=== PATIENT | male | born 1960 | race Caucasian/White ===

== ENCOUNTER 2016-12-17 08:18 | Emergency (ER) | payer OTHER ==
[2016-12-17 08:23] VITALS: BMI 22.4
[2016-12-17 08:25] VITALS: BP 107/81; PULSE 51; TEMP 97.8
--- NOTE | 2016-12-17 08:46 | PDOC ---
History of Present Illness - General Chief Complaint: Sore Throat Stated Complaint: SORE THROAT Time Seen by Provider: 12/17/16 08:21 - History of Present Illness Initial Comments: 12/17/16 10:36 Chief complaint: Sore throat History of present illness: Patient returned from a trip to the [place] this weekend, traveled by airplane, developed a sore throat while away. The sore throat has persisted, swallowing is painful, and he has not been eating and drinking very much because of this. Review of systems: Denies fever/chills, headache, cough, abdominal pain, nausea , vomiting, diarrhea, chest pain, shortness of breath, urinary tract symptoms. Denies encounters with anyone who is sick, and is unaware of and any insect bites. Past medical history: Patient is a healthy male, no active medical or surgical problems, no medications Social/family history: No tobacco, occasional social alcohol, none recently, family history of colon cancer in his father, at 89 years of age Physical exam: Alert and oriented well-developed well-nourished no acute distress. However, appears moderately pale and dehydrated with dry mucous membranes but adequate skin turgor Afebrile, vital signs normal HEENT: The throat is mildly injected but there is no swelling, edema, or exudate. Eyes ears and nose are clear Neck supple without bruit mass or nodes Lungs clear with full breath sounds throughout bilaterally CV regular without murmur rub or gallop pulses full and symmetric no JVD or edema Abdomen soft nontender without mass or organomegaly. Bowel sounds normal Neurological intact No skin rash Extremities no CCE Impression: Viral URI, rule out strep, dehydration Plan: Strep screen, IV fluids, CBC and electrolytes, observe. Analgesics. Past History - Past Medical History Allergies/Adverse Reactions: Allergies Allergy/AdvReac Type Severity Reaction Status Date / Time No Known Allergies Allergy Verified 12/17/16 08:19 Home Medications: Ambulatory Orders No Home Medications 0 dose .ROUTE UTDICT 04/15/12 Asthma: No Cardiac Disorders: No Diabetes: No HTN: No Other medical history: DENIES - Immunization History Immunization Up to Date: Yes - Psycho/Social/Smoking Cessation Hx Anxiety: No Suicidal Ideation: No Smoking Status: No Smoking History: Never smoked Number of Cigarettes Smoked Daily: 0 Hx Alcohol Use: Yes Drug/Substance Use Hx: No Substance Use Type: Alcohol *Physical Exam - Vital Signs Last Vital Signs Temp Pulse Resp BP Pulse Ox 97.8 F 51 L 18 107/81 100 12/17/16 08:19 12/17/16 08:19 12/17/16 08:19 12/17/16 08:19 12/17/16 08:19 ED Treatment Course - LABORATORY CBC & Chemistry Diagram: 12/17/16 10:10 12/17/16 10:10 Medical Decision Making - Medical Decision Making 12/17/16 11:19 Patient feels much better after receiving intravenous fluids and Motrin. His laboratory workup shows no significant abnormalities, specifically the white count is normal, BUNs, creatinine, and her electrolytes are normal as well Fully ambulatory and in no discomfort upon discharge to follow-up as needed. *DC/Admit/Observation/Transfer Diagnosis at time of Disposition: Acute viral pharyngitis - Discharge Dispostion Disposition: HOME Condition at time of disposition: Improved Admit: No - Patient Instructions Printed Discharge Instructions: DI for Viral Pharyngitis Additional Instructions: Maintain hydration, rest, Tylenol or Motrin. Return to ER if symptoms worsen or follow up with primary physician if no improvement.
[2016-12-17] MEDS ORDERED: IBUPROFEN 600 MG TABLET (FP) PO ONE (09:58)
[2016-12-17] MEDS ORDERED: IBUPROFEN 400 MG TABLET (FP) PO ONE (10:04)
[2016-12-17] MEDS ORDERED: SODIUM CHLORIDE 1,000 ML IV STA (10:13)
[2016-12-17 10:52] LABS: ALK PHOS 25 U/L (32-92); ANION GAP 5 (8-16); BILIRUBIN,TOTAL 1.3 mg/dl (0.2-1.0); CALCIUM 9.2 mg/dl (8.4-10.2); CO2 30 mmol/L (22-28); GLUCOSE,RANDOM 96 mg/dl (74-106); SGOT/AST 21 U/L (10-42); SGPT/ALT 23 U/L (10-40); TOT PROT 6.2 g/dl (6.4-8.3)
[2016-12-17 11:14] LABS: BASOPHIL 1.7 % (0-2.0); EOSINOPHIL 1.9 % (0-4.5); MCH 30.5 pg (25.7-33.7); MCHC 33.3 g/dl (32.0-35.9); MEAN CELL VOLUME 91.5 fl (80-96); MEAN PLT VOLUME 8.8 fl (7.5-11.1); NEUTROPHILS 67.7 % (42.8-82.8); PLATELET COUNT 190 K/MM3 (134-434); RDW 12.3 % (11.9-15.9); WHITE BLOOD COUNT 7.2 K/mm3 (4.0-10.8)
== END 2016-12-17 11:25 | disposition home or self-care (01) ==
LOC: FER 08:18
PROC: 3E0337Z Introduction of Electrolytic and Water Balance Substance into Peripheral Vein, Percutaneous Approach (ICD-10-PCS; principal; 2016-12-17)
DX: J02.8 Acute pharyngitis due to other specified organisms (principal); B97.89 Other viral agents as the cause of diseases classified elsewhere
CPT/HCPCS: 36415; 80053; 85025; 87070; 87430; 99282-25

== ENCOUNTER 2022-09-09 18:41 | Emergency (ER) | payer OTHER ==
[2022-09-09 18:50] VITALS: BP 134/86; PULSE 62; RESP 20; TEMP 98; BMI 23.0
== END 2022-09-09 19:56 | disposition home or self-care (01) ==
LOC: FER 18:41
DX: M70.21 Olecranon bursitis, right elbow (principal); R22.31 Localized swelling, mass and lump, right upper limb
CPT/HCPCS: 99282-25

== ENCOUNTER 2023-05-13 05:14 | Emergency (ER) | payer OTHER ==
[2023-05-13 05:19] VITALS: RESP 16; TEMP 97.7; BMI 22.4
[2023-05-13 06:29] LABS: BASO % 1.5 % (0-2.0); EOS % 7.2 % (0-4.5); HEMATOCRIT 39.9 % (35.4-49); HEMOGLOBIN 13.7 GM/dL (11.7-16.9); LYMPH % 29.6 % (8-40); MCH 31.3 pg (25.7-33.7); MCHC 34.3 g/dl (32.0-35.9); MEAN CELL VOLUME 91.2 fl (80-96); MEAN PLT VOLUME 8.6 fl (7.5-11.1); MONO % 9.7 % (3.8-10.2); PLATELET COUNT 211 10^3/uL (134-434); RBC 4.37 M/mm3 (4.00-5.60); RDW 13.1 % (11.9-15.9); WHITE BLOOD COUNT 8.9 K/mm3 (4.0-10.0)
[2023-05-13] MEDS ORDERED: MAG HYDROX/AL HYDROX/SIMETH 30 ML UNIT-DOSE CUP ONE (06:30)
[2023-05-13] MEDS ORDERED: MAG HYDROX/AL HYDROX/SIMETH 30 ML UNIT-DOSE CUP PO ONE (06:31)
[2023-05-13 07:33] VITALS: BP 113/76; PULSE 53
[2023-05-13 08:23] LABS: ALBUMIN 3.5 g/dl (3.4-5.0); BILIRUBIN,TOTAL 0.4 mg/dL (0.2-1); BLOOD UREA NITROGEN 22.8 mg/dL (7-18); CALCIUM 8.7 mg/dL (8.5-10.1); CREATININE 1.4 mg/dL (0.55-1.3); POTASSIUM 3.9 mmol/L (3.5-5.1); TOT PROT 6.3 g/dl (6.4-8.2)
[2023-05-13 09:16] LABS: HEMATOCRIT 41.3 % (35.4-49); HEMOGLOBIN 13.6 G/dL (11.7-16.9); MCH 30.3 pg (25.7-33.7); MCHC 32.8 g/dl (32.0-35.9); MEAN CELL VOLUME 92.4 fl (80-96); MEAN PLT VOLUME 8.4 fl (7.5-11.1); PLATELET COUNT 192.6 10^3/uL (134-434); RBC 4.47 10^6/uL (4.00-5.60); WHITE BLOOD COUNT 11.9 10^3/uL (4.0-10.8)
[2023-05-13 09:36] LABS: ALBUMIN 3.9 g/dl (3.4-5.0); BILIRUBIN,TOTAL 0.9 mg/dl (0.2-1); CALCIUM 9.1 mg/dl (8.5-10.1); CREATININE 1.1 mg/dl (0.6-1.3); POTASSIUM 4.2 mmol/L (3.5-5.1); TOT PROT 5.6 g/dl (6.4-8.2)
[2023-05-13 09:38] LABS: PLATELET ESTIMATE ADEQUATE
== END 2023-05-13 10:10 | disposition home or self-care (01) ==
LOC: FER 05:14
DX: R07.9 Chest pain, unspecified (principal); R61 Generalized hyperhidrosis
CPT/HCPCS: 36415; 71045-TC-FY; 80053; 82550; 84484; 85025; 85027; 93005; 93010; 99285-25